=== PATIENT | female | born 1950 | race Caucasian/White ===

== ENCOUNTER 2018-10-25 13:31 | Emergency (ER) | payer OTHER ==
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
[2018-10-25] MEDS ORDERED: Silver Sulfadiazine 1%* 20 GM TOPICAL ONE (16:20)
== END 2018-10-25 16:38 | disposition home or self-care (01) ==
LOC: UCCORT 13:31
DX: X19.XXXA Contact with other heat and hot substances, initial encounter (principal); Y93.G3 Activity, cooking and baking; Y92.000 Kitchen of unspecified non-institutional (private) residence as the place of occurrence of the external cause; T23.221A Burn of second degree of single right finger (nail) except thumb, initial encounter; F17.210 Nicotine dependence, cigarettes, uncomplicated
CPT/HCPCS: 99213; A9270-GY; G0463